=== PATIENT | female | born 1955 | race Caucasian/White ===

== ENCOUNTER 2023-05-06 07:57 | Emergency (ER) | payer OTHER, MEDICAID | END 2023-05-06 10:44 | disposition home or self-care (01) | LOC: JP.ED 07:57 | DX: M77.8 Other enthesopathies, not elsewhere classified (principal); I10 Essential (primary) hypertension; K21.9 Gastro-esophageal reflux disease without esophagitis; Z86.16 Personal history of COVID-19 | CPT/HCPCS: 73630-26-LT; 73630-LT; 99283 ==

== ENCOUNTER 2025-05-18 23:08 | Emergency (ER) | payer BC, MEDICAID, OTHER ==
[2025-05-19 00:29] LABS: BASOPHILS ABSOLUTE AUTO 0.07 K/uL (0.00-0.10); BASOPHILS PERCENT AUTO 0.8 % (0.1-1.3); EOSINOPHILS ABSOLUTE AUTO 0.08 K/uL (0.00-0.40); EOSINOPHILS PERCENT AUTO 0.9 % (0.0-5.4); HEMATOCRIT 38.4 % (34.3-46.0); HEMOGLOBIN 13.1 g/dL (11.2-15.5); IMMATURE GRAN ABSOLUTE AUTO 0.04 K/uL (0.00-0.23); IMMATURE GRAN PERCENT AUTO 0.5 % (0.0-0.7); LYMPHOCYTES ABSOLUTE AUTO 1.92 K/uL (0.8-3.3); LYMPHOCYTES PERCENT AUTO 22.3 % (11.4-47.7); MEAN CORPUSCULAR HEMOGLOBIN 33.3 pg (31.6-35.5); MEAN CORPUSCULAR HGB CONC 34.1 g/dL (31.6-35.5); MEAN CORPUSCULAR VOLUME 97.7 fL (81.4-99.0); MONOCYTES ABSOLUTE AUTO 0.38 K/uL (0.20-0.90); MONOCYTES PERCENT AUTO 4.4 % (3.3-12.6); NEUTROPHILS ABSOLUTE AUTO 6.11 K/uL (1.0-7.6); NEUTROPHILS PERCENT AUTO 71.1 % (40.0-78.1); PLATELET COUNT,PLT 187 K/uL (130-375); RED BLOOD CELL COUNT 3.93 M/uL (3.77-5.24); WHITE BLOOD CELL COUNT,WBC 8.6 K/uL (3.2-11.0)
[2025-05-19 00:49] LABS: ALANINE AMINOTRANSFERASE,ALT 60 U/L (12-78); ALKALINE PHOSPHATASE 88 U/L (46-116); ASPARTATE AMNIOTRANSFERASE,AST 56 U/L (15-37); BILIRUBIN TOTAL 0.7 mg/dL (0.2-1.0); BLOOD UREA NITROGEN,BUN 9 mg/dL (7-18); CALCIUM 10.3 mg/dL (8.5-10.1); CARBON DIOXIDE,CO2 28 mmol/L (21-32); CHLORIDE,CL 99 mmol/L (100-108); EST CRCL DRUG DOSING (CG) 48.45 mL/min; ESTIMATED GFR 61 mL/min (>60); GLUCOSE RANDOM 147 mg/dL (74-106); POTASSIUM,K 3.8 mmol/L (3.6-5.2); PROTEIN TOTAL,TP 8.1 g/dL (6.4-8.2); SODIUM,NA 138 mmol/L (140-148)
[2025-05-19 00:54] LABS: ANION GAP 14.8 mmol/L (5.0-14.0)
[2025-05-19] MEDS: Sodium Chloride 0.9% 100 ML IV SCH (02:07)
[2025-05-19] MEDS: Iopamidol 612 MG/ML 100 ML Bottle IV SCH (02:07)
[2025-05-19] MEDS: Sodium Chloride 0.9% 10 ML Syringe FLUSH PRN (02:07)
== END 2025-05-19 02:45 | disposition home or self-care (01) ==
LOC: JP.ED 23:08
DX: K52.9 Noninfective gastroenteritis and colitis, unspecified (principal); K64.5 Perianal venous thrombosis; Z79.899 Other long term (current) drug therapy; Z86.16 Personal history of COVID-19; Z87.891 Personal history of nicotine dependence
CPT/HCPCS: 36415; 74177; 80053; 82272; 83605; 85025; 99284; Q9967